=== PATIENT | female | born 1995 | race Caucasian/White ===

== ENCOUNTER 2016-11-29 18:09 | Emergency (ER) | payer SELFPAY ==
[~2016-11-29] VITALS: Ht 172.7 cm; Wt 59.0 kg
--- NOTE | 2016-11-29 18:23 | NUR ---
Dr Amor AT BEDSIDE FOR EVAL
[2016-11-29] MEDS ORDERED: IV NS 0.9% 1,000 ML ONE (18:28)
[2016-11-29] MEDS ORDERED: IV SET PRIMARY 1 EA INFUS.SET MC ONE (18:28)
--- NOTE | 2016-11-29 18:29 | NUR ---
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 NEURO INTACT, NO TRAUMA NOTED. PLACED ON MONITOR. VSS. AWAITING MD ORDER
[2016-11-29] MEDS: IV NS 0.9% 1,000 ML BAG IV ONE (18:35)
--- NOTE | 2016-11-29 18:35 | NUR ---
EKG IN PROGRESS
--- NOTE | 2016-11-29 18:37 | NUR ---
PT REFUSED BLOOD DRAW AND IV FLUIDS MADE AWARE.
[2016-11-29 19:12] VITALS: BP 110/75
--- NOTE | 2016-11-29 19:16 | NUR ---
report given to juan diego for karlos
--- NOTE | 2016-11-29 19:22 | NUR ---
Patient discharged to home in stable condition. Written and verbal after care instructions given. Patient verbalizes understanding of instruction.
== END 2016-11-29 19:24 | disposition home or self-care (01) ==
LOC: ER 18:12
DX: R55 Syncope and collapse (principal); R04.0 Epistaxis
CPT/HCPCS: A4606; J7030; Z7610